=== PATIENT | female | born 1980 | race Caucasian/White ===

== ENCOUNTER 2017-11-03 20:23 | Inpatient (IN) | payer BC ==
[2017-11-04] MEDS ORDERED: ePHEDrine 50 MG/ML SDV IVPUSH PRN (00:22)
[2017-11-04] MEDS ORDERED: diphenhydrAMINE 50 MG/ML SDV IVPUSH PRN (00:22)
[2017-11-04] MEDS ORDERED: fentaNYL 100 MCG/2 ML SDV EPIDUR PRN (00:22)
[2017-11-04] MEDS ORDERED: Ondansetron 4 MG/2 ML SDV IVPUSH PRN (00:22)
[2017-11-04] MEDS ORDERED: Bupivacaine/fentaNYL/NS 100 ML Bag EPIDUR SCH (00:30)
--- NOTE | 2017-11-04 02:45 | PCM.PREANE ---
Preanesthetic Assessment - Procedure Proposed Procedure: Epidural - Anesthesia/Transfusion/Family Hx Anesthesia History: No Prior Anesthesia Transfusion History: No Prior Transfusion(s) - Review of Systems General: No Symptoms Pulmonary: No Symptoms Cardiovascular: No Symptoms Gastrointestinal: No Symptoms Neurological: No Symptoms Other: Reports: None - Physical Assessment O2 Sat by Pulse Oximetry: 98 Respiratory Rate: 17 Vital Signs: Last Vital Signs Temp 36.4 C 11/03/17 20:39 Pulse 92 11/03/17 20:39 Resp 17 11/03/17 20:39 BP 115/68 11/03/17 20:39 Pulse Ox Height: 1.57 m Weight: 69.082 kg ASA Class: 2 Mental Status: Alert & Oriented x3 Airway Class: Mallampati = 1 Dentition: Reports: Normal Dentition Thyro-Mental Finger Breadths: 3 Mouth Opening Finger Breadths: 3 ROM/Head Extension: Full Lungs: Clear to Auscultation, Normal Respiratory Effort Cardiovascular: Regular Rate, Regular Rhythm - Lab Values: Laboratory Last Values WBC 13.60 K/mm3 (3.98-10.04) H 11/03/17 21:25 RBC 4.26 M/mm3 (3.98-5.22) 11/03/17 21:25 Hgb 12.2 gm/L (11.2-15.7) 11/03/17 21:25 Hct 36.4 % (34.1-44.9) 11/03/17 21:25 MCV 85.4 fl (79.4-94.8) 11/03/17 21:25 MCH 28.6 pg (25.6-32.2) 11/03/17 21:25 MCHC 33.5 g/dl (32.2-35.5) 11/03/17 21:25 RDW Std Deviation 44.0 fL (36.4-46.3) 11/03/17 21:25 Plt Count 262 K/mm3 (182-369) 11/03/17 21:25 MPV 10.9 fl (9.4-12.3) 11/03/17 21:25 Neut % (Auto) 71.7 % (34.0-71.1) H 11/03/17 21:25 Lymph % (Auto) 19.5 % (19.3-51.7) 11/03/17 21:25 [place] % (Auto) 6.7 % (4.7-12.5) 11/03/17 21: Eos % (Auto) 0.7 (0.7-5.8) 11/03/17: Baso % (Auto) 0.2 % (0.1-1.2) 11/03/17 21: Neut # (Auto) 9.75 K/mm3 (1.56-6.13) H 11/03/17: Lymph # (Auto) 2.65 K/mm3 (1.18-3.74) 11/03/17: [place] # (Auto) 0.91 K/mm3 (0.24-0.36) H 11/03/17: Eos # (Auto) 0.10 K/mm3 (0.04-0.36) 11/03/17 21: Baso # (Auto) 0.03 K/mm3 (0.01-0.08) 11/03/17 21: Manual Slide Review Abnormal smear 11/03/17 21:25 Blood Type O POSITIVE 11/03/17 21:25 Gel Antibody Screen Negative 11/03/17 21:25 - Allergies Allergies/Adverse Reactions: Allergies Allergy/AdvReac Type Severity Reaction Status Date / Time Penicillins Allergy Rash Verified 11/03/17 21:12 Sulfa (Sulfonamide Allergy Rash Verified 11/03/17 21:12 Antibiotics) - Acknowledgements Anesthesia Type Planned: Epidural Pt an Appropriate Candidate for the Planned Anesthesia: Yes Alternatives and Risks of Anesthesia Discussed w Pt/Guardian: Yes Pt/Guardian Understands and Agrees with Anesthesia Plan: Yes Additional Comments: Epidural is available one Sulma is dedicated to labor/delivery. PreAnesthesia Questionnaire - CURRENT (IN HOUSE) MEDS Current Meds: Current Medications Diphenhydramine HCl (Benadryl) 25 mg IVPUSH Q6H PRN PRN Reason: Pruritis Ephedrine Sulfate (Ephedrine Sulfate) 5 mg IVPUSH ASDIRECTED PRN PRN Reason: Hypotension Fentanyl (Sublimaze) 100 mcg EPIDUR ONETIME PRN PRN Reason: Pain Fentanyl/Bupivacaine HCl (Fentanyl/Bupivacaine/Ns 2 Mcg-0.125% 100 Ml) 100 ml EPIDUR ASDIRECTED [facility]IN Ondansetron HCl (Zofran) 4 mg IVPUSH ONETIME PRN PRN Reason: Nausea/Vomiting
[2017-11-04] MEDS: Lactated Ringers 1,000 ML IV SCH ×3 (04:00→07:43)
[2017-11-04] MEDS ORDERED: Sodium Chloride 0.9% 10 ML Syringe FLUSH PRN (04:10)
[2017-11-04] MEDS ORDERED: Oxytocin/Lactated Ringers 10 UNIT/1,000 ML BAG IV SCH (04:15)
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
--- NOTE | 2017-11-04 14:07 | PCM.SN ---
- Free Text/Narrative Note: Sulma is a 37 y/o G 6 P 2041 white female with an LORENZA of 11/02/2017 who was admitted last evening with contractions and early active labor. She progressed to approximate 4 cm by this a.m. Artificial membranes is undertaken as she is having very irregular labor pattern. This increased the frequency and intensity of contractions and by approximately 1145 hrs. she became completely dilated. She pushed well and with an approximate 4 contractions she delivered a viable, godinez, female weighing 3230 g menses 7 pounds 1.9 ounces with Apgars of 8/9 in a left occiput anterior position at 1224 hrs. The umbilical cord was allowed to pulsate until it stopped. Lamp 2 and cut by the baby's father. The umbilical cord had 3 vessels and cord blood was obtained. Patient had an epidural for labor and analgesia. She had a first-degree perineal laceration which was closed with 3-0 Monocryl suture in a routine fashion. Epidural was used for anesthesia. Pitocin was administered after delivery of the baby to facilitate increase in uterine tone and decrease likelihood of uterine bleeding. Placenta delivered in a Green presentation at 1229 hrs., appeared intact and complete and was discarded per patient desire. Patient plans to nurse. Estimated blood loss was less than 100 mL. Condition: Good
[2017-11-04] MEDS ORDERED: Ibuprofen 600 MG Tab PO PRN (14:20)
[2017-11-04] MEDS ORDERED: Lanolin 100% Cream 7 GM Tube TOP PRN (14:20)
[2017-11-04] MEDS ORDERED: Acetaminophen 325 MG Tab PO PRN (14:20)
[2017-11-04] MEDS ORDERED: Benzocaine/Menthol 20%-0.5% Spray 56 GM Canister TOP PRN (14:20)
[2017-11-04] MEDS ORDERED: Docusate Sodium 100 MG Cap PO PRN (14:20)
[2017-11-04] MEDS ORDERED: Witch Hazel Medicated Pads 100/Jar TOP PRN (14:20)
[2017-11-04] MEDS ORDERED: Bupivacaine 0.25% 10 ML SDV ONE (22:22)
--- NOTE | 2017-11-05 09:41 | PCM.NBDC ---
[place] Discharge Summary - Hospital Course Free Text/Narrative: Sulma is a 37 y/o G 6 P 2041 white female with an LORENZA of 11/02/2017 who was admitted last evening with contractions and early active labor. She progressed to approximate 4 cm by this a.m. Artificial membranes is undertaken as she is having very irregular labor pattern. This increased the frequency and intensity of contractions and by approximately 1145 hrs. she became completely dilated. She pushed well and with an approximate 4 contractions she delivered a viable, godinez, female infant weighing 3230 g menses 7 pounds 1.9 ounces with Apgars of 8/9 in a left occiput anterior position at 1224 hrs. The umbilical cord was allowed to pulsate until it stopped. Lamp 2 and cut by the baby's father. The umbilical cord had 3 vessels and cord blood was obtained. Patient had an epidural for labor and analgesia. She had a first-degree perineal laceration which was closed with 3-0 Monocryl suture in a routine fashion. Epidural was used for anesthesia. Pitocin was administered after delivery of the baby to facilitate increase in uterine tone and decrease likelihood of uterine bleeding. Placenta delivered in a Green presentation at 1229 hrs., appeared intact and complete and was discarded per patient desire. Patient plans to nurse. Estimated blood loss was less than 100 mL. patient is done well. She is voiding well, and voiding without problems and has no concerns. She is interested in discharge home. - Discharge Data Date of : 84 Date of Discharge: 11/05/17 Discharge Disposition: Home, Self-Care 01 Condition: Good - Discharge Plan Home Medications: Home Meds Acetaminophen [Tylenol] 650 mg PO Q4H PRN tablet 11/05/17 [Rx] Ibuprofen [IJD: Ibuprofen] 600 mg PO Q4H PRN tablet 11/05/17 [Rx] Referrals: Omer Mack MD [Physician] - ([facility] - Discharge Summary/Plan Comment DC Time >30 min.: No Discharge Summary/Plan:: Discharge instructions: 1. Discharge home 2. Diet, activity and follow-up discussed with patient. Recommend nursing diet with increased calories and calcium. 3. Precautions given concern increased pain, bleeding, temperature, signs/ symptoms of DVT/PE. 4. Medications per home medication was printed, discussed with and given to the patient. 5. Return to clinic-Dr. Mack[facility] in 2 weeks. Diagnosis: Term -delivered Condition: Good History - [place] Admission Detail [place] Admission Detail: Mother's Blood Type and RH Blood Type O POSITIVE 11/03/17 21:25 - Maternal History Mother's Blood Type: O Mother's Rh: Positive [place] Nursery Info & Exam - Exam Exam: See Below - Vital Signs Vital Signs: Last Vital Signs Temp 36.4 C 11/05/17 08:05 Pulse 78 11/05/17 08:05 Resp 16 11/05/17 08:05 BP 124/50 L 11/05/17 08:05 Pulse Ox 100 11/05/17 08:05 Current Weight: 69.082 kg Height: 1.57 m
--- NOTE | 2017-11-05 11:34 | PCM48HPAN ---
Post Anesthesia Note - EVALUATION WITHIN 48HRS OF ANESTHETIC Vital Signs in Normal Range: Yes Patient Participated in Evaluation: Yes Respiratory Function Stable: Yes Airway Patent: Yes Cardiovascular Function Stable: Yes Hydration Status Stable: Yes Pain Control Satisfactory: Yes Nausea and Vomiting Control Satisfactory: Yes Mental Status Recovered: Yes Pulse Rate: 78 Resp Rate: 16 Temperature: 36.4 C Blood Pressure: 124/50 - COMMENTS/OBSERVATIONS Free Text/Narrative:: no anesthesia complications
== END 2017-11-05 13:15 | disposition home or self-care (01) | DRG 560 ==
LOC: JD.OBCHECK 20:23 → JD.OB 20:27 → JD.OBCHECK 11-04 03:30 → JD.OB 11-04 03:30 → OBSVTOIN 11-04 12:24 → JD.OB 11-04 12:24
PROVIDERS: ADMIT Obstetrics & Gynecology; ATTEND Obstetrics & Gynecology
PROC: 10E0XZZ Delivery of Products of Conception, External Approach (ICD-10-PCS; principal; 2017-11-04)
PROC: 10907ZC Drainage of Amniotic Fluid, Therapeutic from Products of Conception, Via Natural or Artificial Opening (ICD-10-PCS; 2017-11-04)
PROC: 0HQ9XZZ Repair Perineum Skin, External Approach (ICD-10-PCS; 2017-11-04)
PROC: 00HU33Z Insertion of Infusion Device into Spinal Canal, Percutaneous Approach (ICD-10-PCS; 2017-11-04)
PROC: 3E0R3BZ Introduction of Anesthetic Agent into Spinal Canal, Percutaneous Approach (ICD-10-PCS; 2017-11-04)
DX: O70.0 First degree perineal laceration during delivery (principal); Z3A.40 40 weeks gestation of pregnancy; Z37.0 Single live birth; Z88.0 Allergy status to penicillin; Z88.2 Allergy status to sulfonamides
CPT/HCPCS: 36415; 51702; 59300; 59409; 85025; 85027; 86850; 86900; 86901; A9270-GY; J2590; J3010; J7120